=== PATIENT | female | born 1980 | race Hispanic/Latino ===

== ENCOUNTER 2019-04-19 14:13 | Emergency (ER) | payer SELFPAY ==
[2019-04-19 15:09] LABS: Urine Blood 3+ (NEG); Urine Glucose NEGATIVE (NEG); Urine Protein NEGATIVE (NEG); Urine Specific Gravity <1.005 (1.005-1.030)
[2019-04-19 15:41] LABS: BUN Blood Urea Nitrogen 10 mg/dL (7-18); Bicarbonate 27 mmol/L (21-32); Glucose Level 104 mg/dL (74-106); Potassium 3.3 mmol/L (3.5-5.1); Sodium Level 139 mmol/L (136-145)
--- NOTE | 2019-04-19 16:08 | RAD REPORT ---
EXAM DESCRIPTION: CT - Stone Protocol - 04/19/2019 3:58 pm CLINICAL HISTORY: Right-sided back pain, right-sided flank pain COMPARISON: None. TECHNIQUE: Axial 5 mm thick images were obtained without oral or IV contrast. The [id number] span s the entirety of the system including uppermost abdomen and lung bases. All CT scans are performed using dose optimization technique as appropriate and may include automated exposure control or mA/KV adjustment according to patient size. FINDINGS: No hydronephrosis is present and no obstructing ureteral calculi. No suspicious renal mass es. Isodense masses and pyelonephritis are not excluded on a stone protocol CT scan. No urinary bladd er suspicious finding. No significant adrenal finding. Mild diffuse fatty infiltration of the liver. No focal liver lesions identified. Spleen and pancreas show no suspicious findings. No gallbladder or biliary tree abnormality identified. No suspicious bowel findings. No evidence for appendicitis. Mild moderate stool volume seen in the ri ght-side of the colon. No hernia, mass or bulky lymphadenopathy noted. No free air, free fluid or inflammatory stranding. Lo bulated uterus is present likely containing fibroids. Assessment is limited in the absence contrast. No ovarian suspicious finding. No significant bony abnormality. IMPRESSION: Negative CT stone protocol study. Isodense masses and pyelonephritis are not excluded on stone protocol technique. Fatty infiltration of the liver.
--- NOTE | 2019-04-19 16:13 | ER ---
Nurse's Notes [facility] Name: Petty Greenfield Age: 38 yrs Sex: Female : 1980 Arrival Date: 04/19/2019 Time: 14:15 Bed 14 Private MD: Diagnosis: Flank Pain;Hypokalemia Presentation: 04/19 14:20 Presenting complaint: Patient states: for 3 days, i have this pain on my R mid back hj area down to the R lower back area, today i feel like my stomach is bloated; denies N/V; denies fever and chills;. Transition of care: patient was not received from another setting of care. Onset of symptoms was April 19, 2019. Risk Assessment: Do you want to hurt yourself or someone else? Patient reports no desire to harm self or others. Initial Sepsis Screen: Does the patient meet any 2 criteria? No. Patient's initial sepsis screen is negative. Does the patient have a suspected source of infection? No. Patient's initial sepsis screen is negative. Care prior to arrival: None. 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 - Ebola Screening: : No symptoms or risks identified at this time. Screenin:12 Abuse screen: Denies threats or abuse. Nutritional screening: No deficits noted. ae4 Tuberculosis screening: No symptoms or risk factors identified. Fall Risk None identified. Assessment: 14:45 General: Appears in no apparent distress. uncomfortable, Behavior is cooperative, ae4 anxious. Pain: Complains of pain in right lower quadrant and left lower quadrant. Neuro: Level of Consciousness is awake, alert, obeys commands, Oriented to person, place, time, situation, Appropriate for age. Cardiovascular: Patient's skin is warm and dry. Respiratory: Airway is patent Respiratory effort is even, unlabored, Respiratory pattern is regular, symmetrical. GI: Abdomen is round Bowel sounds present X 4 quads. Abd is soft and non tender X 4 quads. : No signs and/or symptoms were reported regarding the genitourinary system. Urine is clear. EENT: No signs and/or symptoms were reported regarding the EENT system. Derm: Skin is normal. Musculoskeletal: No signs and/or symptoms reported regarding the musculoskeletal system. 15:32 Reassessment: Patient and/or family updated on plan of care and expected duration. Pain ae4 level reassessed. 16:44 Reassessment: Patient appears in no apparent distress at this time. Patient and/or ae4 family updated on plan of care and expected duration. Pain level reassessed. Vital Signs: 14:22 BP 143 / 67; Pulse 66; Resp 18; Temp 98.2(TE); Pulse Ox 100% on R/A; Weight 74.84 kg; hj Height 5 ft. 3 in. (160.02 cm); Pain 6/10; 15:30 BP 121 / 71; Pulse 66; Resp 17; Pulse Ox 99% on R/A; ae4 14:22 Body Mass Index 29.23 (74.84 kg, 160.02 cm) ED Course: 14:15 Patient arrived in ED. mr 14:22 Triage completed. hj 14:22 Arm band placed on left wrist. hj 14:28 Jennifer Killian FNP-C [facility]. kb 14:28 Maury Calloway MD is Attending Physician. kb 14:45 Bed in low position. Call light in reach. Side rails up X 1. Adult w/ patient. Pulse ox ae4 on. NIBP on. 14:48 Ian Kelley, MAAME is Primary Nurse. ae4 14:52 Radiology exam delayed due to test not completed at this time. kw1 15:12 Inserted saline lock: 20 gauge in right antecubital area, using aseptic technique. ae4 Blood collected. 15:18 Radiology exam delayed due to test not completed at this time. vm2 16:00 Patient moved back from ultrasound. ae4 16:01 CT Stone Protocol In Process Unspecified. EDMS 16:48 No provider procedures requiring assistance completed. IV discontinued, intact, ae4 bleeding controlled, No redness/swelling at site. Pressure dressing applied. Administered Medications: 16:28 Drug: Potassium Chloride 20 mEq Route: PO; ae4 16:35 Follow up: Response: Medication administered at discharge. ae4 16:30 Drug: TORadol 30 mg Route: IVP; Site: right antecubital; ae4 16:35 Follow up: Response: No adverse reaction ae4 Outcome: 16:13 Discharge ordered by MD. cadena 16:48 Discharged to home ambulatory, with family. ae4 16:48 Condition: stable 16:48 Discharge instructions given to patient, Instructed on discharge instructions, follow up and referral plans. medication usage, Demonstrated understanding of instructions, Prescriptions given X 1. 16:48 Patient left the ED. ae4 Signatures: Dispatcher [employer] EDMS Jennifer Killian, SARA-C BORING MACHINE SET UP OPERATOR JIG-Zainab Robbins mr SanchezMick gibbs, RN RN Demetrio Harden [facility] Cecilia Delgado [facility] Ian Kelley, MAAME RN ae4 Corrections: (The following items were deleted from the chart) 14:24 14:22 Pulse 66bpm; Resp 18bpm; Pulse Ox 100% RA; Temp 98.2F Temporal; 74.84 kg; Height hj 5 ft. 3 in.; BMI: 29.2; Pain 6/10; hj 15:09 15:08 Patient moved to NC via wheelchair. bao gore
--- NOTE | 2019-04-19 16:14 | EDPHYS ---
Physician Documentation [facility] Name: Petty Greenfield Age: 38 yrs Sex: Female : 1980 Arrival Date: 04/19/2019 Time: 14:15 Bed 14 Private MD: ED Physician Maury Calloway HPI: 04/19 15:26 This 38 yrs old Female presents to ER via Ambulatory with complaints of kb Abdominal Pain, Back Pain. 15:26 The patient complains of pain in the left flank and right flank. The pain does not kb radiate. Onset: The symptoms/episode began/occurred 3 day(s) ago. Modifying factors: The symptoms are alleviated by nothing. the symptoms are aggravated by nothing. Associated signs and symptoms: Pertinent positives: urinary frequency, Pertinent negatives: diarrhea, dizziness, dysuria, fever, headache, hematuria, nausea, pain radiating to the lower extremities, vomiting. Severity of pain: At its worst the pain was moderate in the emergency department the pain is unchanged. The patient has not experienced similar symptoms in the past. The patient has not recently seen a physician. Pt reports bilateral flank pain since Wednesday. States she has had urinary frequency as well. Denies dysuria. 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 - Ebola Screening: : No symptoms or risks identified at this time. ROS: 15:24 Constitutional: Negative for fever, chills, and weight loss, Cardiovascular: Negative kb for chest pain, palpitations, and edema, Respiratory: Negative for shortness of breath, cough, wheezing, and pleuritic chest pain, Abdomen/GI: Negative for abdominal pain, nausea, vomiting, diarrhea, and constipation, MS/Extremity: Negative for injury and deformity, Skin: Negative for injury, rash, and discoloration, Neuro: Negative for headache, weakness, numbness, tingling, and seizure. 15:24 Back: Positive for flank pain, bilaterally. 15:24 : Positive for urinary frequency. Exam: 15:24 Constitutional: This is a well developed, well nourished patient who is awake, alert, kb and in no acute distress. Head/Face: Normocephalic, atraumatic. ENT: Nares patent. No nasal discharge, no septal abnormalities noted. Tympanic membranes are normal and external auditory canals are clear. Oropharynx with no redness, swelling, or masses, exudates, or evidence of obstruction, uvula midline. Mucous membranes moist. Neck: Trachea midline, no thyromegaly or masses palpated, and no cervical lymphadenopathy. Supple, full range of motion without nuchal rigidity, or vertebral point tenderness. No Meningismus. Chest/axilla: Normal chest wall appearance and motion. Nontender with no deformity. No lesions are appreciated. Cardiovascular: Regular rate and rhythm with a normal S1 and S2. No gallops, murmurs, or rubs. Normal PMI, no JVD. No pulse deficits. Respiratory: Lungs have equal breath sounds bilaterally, clear to auscultation and percussion. No rales, rhonchi or wheezes noted. No increased work of breathing, no retractions or nasal flaring. Abdomen/GI: Soft, non-tender, with normal bowel sounds. No distension or tympany. No guarding or rebound. No evidence of tenderness throughout. Skin: Warm, dry with normal turgor. Normal color with no rashes, no lesions, and no evidence of cellulitis. MS/ Extremity: Pulses equal, no cyanosis. Neurovascular intact. Full, normal range of motion. Neuro: Awake and alert, GCS 15, oriented to person, place, time, and situation. Cranial nerves II-XII grossly intact. Motor strength 5/5 in all extremities. Sensory grossly intact. Cerebellar exam normal. Normal gait. 15:24 Back: CVA tenderness, that is mild, is noted bilaterally. Vital Signs: 14:22 BP 143 / 67; Pulse 66; Resp 18; Temp 98.2(TE); Pulse Ox 100% on R/A; Weight 74.84 kg; hj Height 5 ft. 3 in. (160.02 cm); Pain 6/10; 15:30 BP 121 / 71; Pulse 66; Resp 17; Pulse Ox 99% on R/A; ae4 14:22 Body Mass Index 29.23 (74.84 kg, 160.02 cm) MDM: 14:38 Patient medically screened. kb 15:23 Data reviewed: vital signs, nurses notes. Data interpreted: Pulse oximetry: on room air kb is 100 %. Interpretation: normal. 16:12 Counseling: I had a detailed discussion with the patient and/or guardian regarding: the kb historical points, exam findings, and any diagnostic results supporting the discharge/admit diagnosis, lab results, radiology results, the need for outpatient follow up, a family practitioner, to return to the emergency department if symptoms worsen or persist or if there are any questions or concerns that arise at home. 04/19 14:47 Order name: Test, Serum; Complete Time: 16:01 kb 04/19 14:48 Order name: Basic Metabolic Panel; Complete Time: 16:01 kb 04/19 14:48 Order name: CT Stone Protocol; Complete Time: 16:11 kb 04/19 14:57 Order name: Urine Dipstick--Ancillary (enter results); Complete Time: 15:14 bd 04/19 14:24 Order name: Urine Dipstick-Ancillary (obtain specimen); Complete Time: 15:10 Administered Medications: 16:28 Drug: Potassium Chloride 20 mEq Route: PO; ae4 16:35 Follow up: Response: Medication administered at discharge. ae4 16:30 Drug: TORadol 30 mg Route: IVP; Site: right antecubital; ae4 16:35 Follow up: Response: No adverse reaction ae4 Disposition: 04/19/19 16:13 Discharged to Home. Impression: Flank Pain, Hypokalemia. - Condition is Stable. - Discharge Instructions: Flank Pain, [id number]. - Prescriptions for Diclofenac Sodium 75 mg Oral Tablet, Delayed Release (E.C.) - take 1 tablet by ORAL route 2 times per day As needed; 30 tablet. - Medication Reconciliation Form, Thank You Letter, Antibiotic Education, Prescription Opioid Use form. - Follow up: Emergency Department; When: As needed; Reason: Worsening of condition. Follow up: Private Physician; When: 2 - 3 days; Reason: Recheck today's complaints, Continuance of care, Re-evaluation by your physician. Signatures: Dispatcher [employer] EDJennifer France FNP-C FNP-Ckb Joaquin, Henry, RN RN Ian Kelley RN RN ae4 Corrections: (The following items were deleted from the chart) 14:48 14:25 Urine Test ordered. kb 16:48 16:13 04/19/2019 16:13 Discharged to Home. Impression: Flank Pain; Hypokalemia. ae4 Condition is Stable. Forms are Medication Reconciliation Form, Thank You Letter, Antibiotic Education, Prescription Opioid Use. Follow up: Emergency Department; When: As needed; Reason: Worsening of condition. Follow up: Private Physician; When: 2 - 3 days; Reason: Recheck today's complaints, Continuance of care, Re-evaluation by your physician. kb
[2019-04-19] MEDS ORDERED: POTASSIUM CL SA 10 MEQ TAB PO ONE (16:43)
[2019-04-19] MEDS ORDERED: KETOROLAC 30 MG/ML INJ ONE (16:43)
== END 2019-04-19 16:48 | disposition home or self-care (01) ==
LOC: ER 14:13
DX: E87.6 Hypokalemia (principal)
CPT/HCPCS: 36415; 74176; 76377; 80048; 81003; 84703; 96374; 99284

== ENCOUNTER 2020-02-25 23:23 | Emergency (ER) | payer SELFPAY ==
[2020-02-26] MEDS ORDERED: WATER FOR INJ,STERILE 10 ML ONE (00:06)
[2020-02-26] MEDS ORDERED: LIDOCAINE 1% MPF 2 ML AMPULE ONE (00:06)
[2020-02-26] MEDS ORDERED: CEFTRIAXONE 1000 MG/VIAL ONE (00:06)
--- NOTE | 2020-02-26 00:37 | EDPHYS ---
Physician Documentation [facility] Name: Petty Greenfield Age: 39 yrs Sex: Female : 1980 Arrival Date: 02/25/2020 Time: 23:26 Bed 27 Private MD: Marina Cloud H ED Physician Ruben Stokes HPI: 02/24 23:32 This 39 yrs old Female presents to ER via Ambulatory with complaints of Pain jmm With Urination. 23:32 The patient presents with urinary symptoms. Onset: The symptoms/episode began/occurred jmm gradually, 1 day(s) ago. Modifying factors: The symptoms are alleviated by nothing, the symptoms are aggravated by nothing. Associated signs and symptoms: Pertinent negatives: fever, vomiting. This is a 39 year old female with no chronic medical conditions that presents to the ED with complaints of painful urination. Symptoms initially began 2 weeks ago and resolved with oral abx. Symptoms return yesterday and patient was prescribed oral antibiotics. Patient states symptoms have worsened this evening. Patient denies vomiting, abdominal pain, flank pain or fever. . 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 - Social history:: Smoking status: Patient denies any tobacco usage or history of. ROS: 23:32 Constitutional: Negative for fever, chills, and weight loss, Cardiovascular: Negative jmm for chest pain, palpitations, and edema, Respiratory: Negative for shortness of breath, cough, wheezing, and pleuritic chest pain, Abdomen/GI: Negative for abdominal pain, nausea, vomiting, diarrhea, and constipation, Back: Negative for injury and pain. 23:32 : Positive for urinary symptoms. 23:32 All other systems are negative. Exam: 23:32 Head/Face: atraumatic. Eyes: EOMI, no conjunctival erythema appreciated ENT: Moist jmm Mucus Membranes Neck: Trachea midline, Supple Chest/axilla: Normal chest wall appearance and motion. Cardiovascular: Regular rate and rhythm. No edema appreciated Respiratory: Normal respirations, no respiratory distress appreciated Abdomen/GI: Non distended, soft Back: Normal ROM Skin: General appearance color normal MS/ Extremity: Moves all extremities, no obvious deformities appreciated, no edema noted to the lower extremities Neuro: Awake and alert, normal gait Psych: Behavior is normal, Mood is normal, Patient is cooperative and pleasant 23:32 Constitutional: The patient appears alert, awake, uncomfortable. 23:32 Abdomen/GI: Inspection: abdomen appears normal, Bowel sounds: normal, Palpation: [facility] abdomen is soft and non-tender, in all quadrants. 23:32 Back: CVA tenderness, is absent, is noted bilaterally. Vital Signs: 23:37 BP 161 / 83; Pulse 66; Resp 19; Temp 98.6; Pulse Ox 100% ; Weight 73.48 kg; rv 02/25 00:22 BP 117 / 69; Pulse 65; Resp 15; Pulse Ox 100% on R/A; rv MDM: 02/24 23:32 Patient medically screened. [facility] 02/25 00:22 Data reviewed: vital signs, nurses notes. Counseling: I had a detailed discussion with [facility] the patient and/or guardian regarding: the historical points, exam findings, and any diagnostic results supporting the discharge/admit diagnosis, the need for outpatient follow up, to return to the emergency department if symptoms worsen or persist or if there are any questions or concerns that arise at home. ED course: Patient is alert and non toxic in appearance in the ED. Abd is benign. Will treat with im and oral abx. Urine is cultured. I discussed return precautions with the patient along with need for close outpatient follow up. Patient understood and agrees with the plan of care. . 02/24 23:33 Order name: Urine Culture [facility] 02/24 23:33 Order name: Urine Dipstick-Ancillary (obtain specimen); Complete Time: 00:16 [facility] 02/24 23:33 Order name: Urine Test (obtain specimen); Complete Time: 00:16 [facility] Administered Medications: 00:16 Drug: Rocephin (cefTRIAXone) 1 grams Route: IM; Site: right deltoid; rv 00:47 Follow up: Response: No adverse reaction rv Disposition: 02/26/20 00:36 Discharged to Home. Impression: Urinary tract infection, site not specified, Dysuria. - Condition is Stable. - Discharge Instructions: Dysuria, Urinary Tract Infection, Adult. - Prescriptions for Cephalexin 250 mg Oral Capsule - take 1 capsule by ORAL route every 12 hours for 10 days; 20 capsule. Ultracet 37.5- 325 mg Oral Tablet - take 1 tablet by ORAL route every 6 hours - for up to 5 days; do not exceed 8 tablets per day.; 12 tablet. - Medication Reconciliation Form, Thank You Letter, Antibiotic Education, Prescription Opioid Use form. - Follow up: Marina Cloud DO; When: 2 - 3 days; Reason: Recheck today's complaints, Continuance of care, Re-evaluation by your physician. Addendum: 02/27/2020 10:06 Co-signature as Attending Physician, Ruben Stokes MD I agree with the assessment and t w4 plan of care. Signatures: Dispatcher [employer] EDMS Mayur Miranda, Ruben Peñaloza MD MD tw4 Lacho Hewitt, RN RN rv Corrections: (The following items were deleted from the chart) 02/25 00:48 00:36 02/26/2020 00:36 Discharged to Home. Impression: Urinary tract infection, site rv not specified; Dysuria. Condition is Stable. Forms are Medication Reconciliation Form, Thank You Letter, Antibiotic Education, Prescription Opioid Use. Follow up: Marina Cloud; When: 2 - 3 days; Reason: Recheck today's complaints, Continuance of care, Re-evaluation by your physician. ronaldo
--- NOTE | 2020-02-26 00:37 | ER ---
Nurse's Notes [facility] Name: Petty Greenfield Age: 39 yrs Sex: Female : 1980 Arrival Date: 02/25/2020 Time: 23:26 Bed 27 Private MD: Marina Cloud H Diagnosis: Urinary tract infection, site not specified;Dysuria Presentation: 02/24 23:37 Chief complaint: Patient states: DIAGNOSED WITH URINE INFECTION YESTERDAY AND STARTED rv CIPRO LAST NIGHT. PAIN WITH URINATION IS WORSE TODAY. DENIES FEVER, NAUSEA AND VOMITING. Coronavirus screen: Proceed with normal triage. Ebola Screen: No symptoms or risks identified at this time. Initial Sepsis Screen: Does the patient meet any 2 criteria? No. Patient's initial sepsis screen is negative. Does the patient have a suspected source of infection? No. Patient's initial sepsis screen is negative. Risk Assessment: Do you want to hurt yourself or someone else? Patient reports no desire to harm self or others. Onset of symptoms was February 25, 2020 at 08:00. 23:37 Method Of Arrival: Ambulatory rv 23:37 Acuity: MAISHA 4 rv Triage Assessment: 23:39 General: Appears in no apparent distress. Behavior is calm, cooperative. Pain: rv Complains of pain in suprapubic area. Pain: Quality of pain is described as crampy. Neuro: Level of Consciousness is awake, alert, obeys commands, Oriented to person, place, time, situation. Cardiovascular: Patient's skin is warm and dry. Respiratory: Airway is patent. GI: No signs and/or symptoms were reported involving the gastrointestinal system. Patient currently denies nausea, vomiting. : Reports pain with urination. 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 - Social history:: Smoking status: Patient denies any tobacco usage or history of. Screenin:41 Abuse screen: Denies threats or abuse. Denies injuries from another. Nutritional rv screening: No deficits noted. Tuberculosis screening: No symptoms or risk factors identified. Fall Risk None identified. Assessment: 02/25 00:21 Reassessment: GIVEN IM ANTIBIOTIC. EXPLAINED THE WAITING TIME AND TEST RESULT. rv Vital Signs: 02/24 23:37 BP 161 / 83; Pulse 66; Resp 19; Temp 98.6; Pulse Ox 100% ; Weight 73.48 kg; rv 02/25 00:22 BP 117 / 69; Pulse 65; Resp 15; Pulse Ox 100% on R/A; rv ED Course: 02/24 23:26 Patient arrived in ED. mr 23:26 Marina Cloud DO is Private Physician. mr 23:27 Mayur Miranda [facility] 23:27 Ruben Stokes MD is Attending Physician. [facility] 23:27 Lacho Hewitt, RN is Primary Nurse. rv 23:38 Triage completed. rv 23:41 Arm band placed on Patient placed in the treatment room, on a stretcher, Patient rv notified of wait time. 23:41 Patient has correct armband on for positive identification. Pulse ox on. NIBP on. rv 02/25 00:36 Marina Cloud DO is Referral Physician. [facility] 00:47 No provider procedures requiring assistance completed. Patient did not have IV access rv during this emergency room visit. Administered Medications: 00:16 Drug: Rocephin (cefTRIAXone) 1 grams Route: IM; Site: right deltoid; rv 00:47 Follow up: Response: No adverse reaction rv Outcome: 00:36 Discharge ordered by MD. [facility] 00:47 Discharged to home ambulatory. rv 00:47 Condition: good 00:47 Discharge instructions given to patient, Instructed on discharge instructions, follow up and referral plans. medication usage, Demonstrated understanding of instructions, follow-up care, medications, Prescriptions given X 3. 00:48 Patient left the ED. rv Signatures: Mayur Miranda PA PA paramjit Ashish Zainab mr Lacho Hewitt, RN RN rv
[2020-02-26 00:55] VITALS: TEMP 98.6; O2SAT 100
[2020-02-26 00:56] VITALS: BP 117/69
== END 2020-02-26 00:48 | disposition home or self-care (01) ==
LOC: ER 23:23
DX: N39.0 Urinary tract infection, site not specified (principal)
CPT/HCPCS: 87086; 87088; J2001

== ENCOUNTER 2023-07-02 15:11 | Emergency (ER) | payer SELFPAY ==
--- OUTSIDE RECORDS SUMMARY | 2023-07-02 15:13 | XMS REPORT | Continuity of Care Document ---
:1980 Author Organization [facility] t Address [address] [place] [address] Care Team Providers Name Role Phone KATHARINE SANCHEZ Primary Care Physician Unavailable KELECHI MOE Attending Clinician Unavailable Problems This patient has no known problems. Allergies, Adverse Reactions, Alerts Allergy Allergy Status Severity Reaction(s) Onset Inactive Treating Comm ents Source Name Type Date Date Clinician NO KNOWN Drug Active Univers ALLERGIE Class 1-15 ity of S 00:00: [address] Medications This patient has no known medications. Procedures This patient has no known procedures. Results This patient has no known results.
[2023-07-02 15:44] LABS: Specific Gravity 1.021 (1.005-1.030)
[2023-07-02 15:50] LABS: SARS-CoV-2 Antigen Rapid Res Negative (Negative)
[2023-07-02 16:00] LABS: Specific Gravity 1.021 (1.005-1.030); Urine Bacteria <20 /HPF (<20); Urine Bilirubin NEGATIVE (Negative); Urine Blood 3+ (Negative); Urine Clarity Extremely Turbid (Clear); Urine Color Light-Yellow (Yellow); Urine Glucose NEGATIVE (Negative); Urine Mucus 1+ /HPF (None Seen); Urine Protein TRACE (Negative); Urine Urobilinogen Normal (Normal); Urine pH 5.5 (5.0-7.0)
[2023-07-02 16:57] LABS: Absolute Lymphocytes (CBC) 1.9 K/uL (0.7-4.9); Hematocrit 35.6 % (36.0-45.0); Lymphocytes % 24.7 % (15.3-44.8); MCV 78.5 fL (80-100); MPV 7.7 fL (7.6-11.3); Platelets 427 thou/uL (152-406); RBC Red Blood Cell Count 4.54 M/uL (3.86-4.86)
[2023-07-02 17:20] LABS: Albumin 3.8 g/dL (3.4-5.0); Bilirubin Total 0.4 mg/dL (0.2-1.0); Potassium 3.5 mEq/L (3.5-5.1); Protein, Total 7.6 g/dL (6.4-8.2)
--- NOTE | 2023-07-02 18:20 | RAD REPORT ---
EXAM DESCRIPTION: CT - Abdomen Pelvis W Contrast - 07/02/2023 6:08 pm CLINICAL HISTORY: Abdominal pain COMPARISON: 2018 TECHNIQUE: Computed axial tomography of the abdomen pelvis was obtained. 100 cc Isovue-300 was admin istered intravenously. Oral contrast was not requested which limits evaluation of bowel and appendix All CT scans are performed using dose optimization technique as appropriate and may include automated exposure control or mA/KV adjustment according to patient size. FINDINGS: Mild fatty liver Spleen, pancreas, adrenals and kidneys unremarkable Normal appendix. No evidence of diverticulitis. 2.1 centimeter left ovarian cyst without significant. No follow-up recommended Retroverted uterus IMPRESSION: Mild fatty liver
--- NOTE | 2023-07-02 18:52 | ER ---
Nurse's Notes [facility] Name: Petty Greenfield Age: 42 yrs Sex: Female : 1980 Arrival Date: 07/02/2023 Time: 15:11 Bed 8 Private MD: Diagnosis: Lower abdominal pain, unspecified;Other and unspecified ovarian cysts;Hematuria, unspecified Presentation: 07/02 15:18 Chief complaint: Patient states: feeling tired all week and today started with lower cm10 abdominal pain and nausea. No fever, no diarrhea. Coronavirus screen: Vaccine status: Patient reports receiving the 2nd dose of the covid vaccine. Client denies travel out of the [place] in the last 14 days. Ebola Screen: Patient denies travel to an Ebola-affected area in the 21 days before illness onset. No symptoms or risks identified at this time. Initial Sepsis Screen: Does the patient meet any 2 criteria? No. Patient's initial sepsis screen is negative. Does the patient have a suspected source of infection? No. Patient's initial sepsis screen is negative. Risk Assessment: Do you want to hurt yourself or someone else? Patient reports no desire to harm self or others. Onset of symptoms was July 02, 2023. 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 - Social history:: Smoking status: Patient denies any tobacco usage or history of. - Family history:: not pertinent. - Hospitalizations: : No recent hospitalization is reported. Screenin:24 [facility] ED Fall Risk Assessment (Adult) Score/Fall Risk Level 0 - 2 = Low Risk. Abuse iw screen: Denies threats or abuse. Denies injuries from another. Nutritional screening: No deficits noted. Tuberculosis screening: No symptoms or risk factors identified. Assessment: 16:00 General: Appears comfortable, Behavior is calm, cooperative, Reports fatigue for >3 aa5 days. Pain: Complains of pain in right lower quadrant and left lower quadrant Pain currently is 5 out of 10 on a pain scale. Quality of pain is described as crampy, Pain began this morning Is intermittent. Neuro: Level of Consciousness is awake, alert, obeys commands, Oriented to person, place, time, situation. Cardiovascular: Heart tones S1 S2 present Rhythm is regular. Respiratory: Airway is patent Respiratory effort is even, unlabored, Respiratory pattern is regular, symmetrical. GI: Abdomen is round non-distended, Bowel sounds present X 4 quads. Abd is soft and non tender X 4 quads. Reports lower abdominal pain, nausea, Patient currently denies diarrhea, vomiting. : No signs and/or symptoms were reported regarding the genitourinary system. EENT: No signs and/or symptoms were reported regarding the EENT system. Derm: Skin is pink, warm \T\ dry. Musculoskeletal: Range of motion: intact in all extremities. 17:24 Reassessment: Patient appears in no apparent distress at this time. Patient and/or iw family updated on plan of care and expected duration. Pain level reassessed. Patient is alert, oriented x 3, equal unlabored respirations, skin warm/dry/pink. Vital Signs: 15:18 BP 122 / 69; Pulse 78; Resp 16; Temp 98.9; Pulse Ox 100% ; Weight 72.57 kg; Pain 5/10; cm10 17:38 BP 114 / 66; Pulse 64; Resp 16; Pulse Ox 100% on R/A; iw 15:18 Pain Scale: Adult cm10 ED Course: 15:14 Patient arrived in ED. mr 15:17 Domenic Gtz MD is Attending Physician. rn 15:19 Triage completed. cm10 15:20 Arm band placed on Patient placed in waiting room. cm10 15:33 Flu Sent. cm10 15:33 SARS RAPID Sent. cm10 15:33 Test, Urine Sent. cm10 15:33 Urinalysis w/ reflexes Sent. cm10 16:00 Patient has correct armband on for positive identification. Placed in gown. Bed in low aa5 position. Call light in reach. Side rails up X2. Pulse ox on. NIBP on. 16:56 Consuelo Ham, MAAME is Primary Nurse. aa5 18:09 CT Abd/Pelvis - IV Contrast Only In Process Unspecified. EDMS 19:14 No provider procedures requiring assistance completed. IV discontinued, intact, hb bleeding controlled, No redness/swelling at site. Administered Medications: No medications were administered Medication: 17:45 VIS not applicable for this client. Outcome: 18:51 Discharge ordered by . rn 19:14 Discharged to home ambulatory. hb 19:14 Condition: stable 19:14 Discharge instructions given to patient, Instructed on discharge instructions, follow up and referral plans. medication usage, Demonstrated understanding of instructions, follow-up care, medications, Prescriptions given X 2. 19:14 Patient left the ED. hb Signatures: Dispatcher [employer] [facility] Zainab Hinojosa Julissa Wiseman, RN Domenic Landaverde MD MD rn Calderon, Audri RN RN aa5 Mckenna Quinones RN RN hb Martinez, Clarissa RN RN cm10 Corrections: (The following items were deleted from the chart) 15:20 15:19 PSHx: None; cm10 cm10 20:00 16:00 General: Appears comfortable, Behavior is calm, cooperative, aa5 aa5
--- NOTE | 2023-07-02 18:52 | EDPHYS ---
Physician Documentation [facility] Name: Petty Greenfield Age: 42 yrs Sex: Female : 1980 Arrival Date: 07/02/2023 Time: 15:11 Bed 8 Private MD: ED Physician Domenic Gtz HPI: 07/02 15:35 This 42 yrs old Female presents to ER via Ambulatory with complaints of rn Abdominal Pain. 15:35 The patient presents with abdominal pain in the lower abdomen. Onset: The rn symptoms/episode began/occurred 1 week(s) ago. The symptoms do not radiate. Associated signs and symptoms: Pertinent negatives: anorexia, blood in stools, chest pain, constipation, diarrhea, dysuria, fever, hematuria. The symptoms are described as achy, crampy. Modifying factors: The symptoms are alleviated by nothing, the symptoms are aggravated by nothing. Severity of pain: At its worst the pain was mild in the emergency department the pain is unchanged. The patient has not experienced similar symptoms in the past. Pt reports lower abd pain, no fever/vomiting/diarrhea/chest pain/sob/blood in stool. No dysuria. NO hx of kidney stones. Still has appendix. Also having lower back pain. . 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 - Social history:: Smoking status: Patient denies any tobacco usage or history of. - Family history:: not pertinent. - Hospitalizations: : No recent hospitalization is reported. ROS: 15:35 Constitutional: Negative for fever, chills, and weight loss, Eyes: Negative for injury, rn pain, redness, and discharge, Cardiovascular: Negative for chest pain, palpitations, and edema, Respiratory: Negative for shortness of breath, cough, wheezing, and pleuritic chest pain, Abdomen/GI: + abd pain Back: + low back pain : Negative for injury, bleeding, discharge, and swelling, MS/Extremity: Negative for injury and deformity, Skin: Negative for injury, rash, and discoloration, Neuro: Negative for headache, weakness, numbness, tingling, and seizure. Exam: 15:35 Constitutional: This is a well developed, well nourished patient who is awake, alert, rn and in no acute distress. Head/Face: Normocephalic, atraumatic. Cardiovascular: Regular rate and rhythm. No pulse deficits. Respiratory: No increased work of breathing, no retractions or nasal flaring. Abdomen/GI: Soft, + RLQ/suprapubic/LLQ tenderness, no peritoneal signs. Skin: Warm, dry MS/ Extremity: Pulses equal, no cyanosis Neuro: Awake and alert, GCS 15 Vital Signs: 15:18 BP 122 / 69; Pulse 78; Resp 16; Temp 98.9; Pulse Ox 100% ; Weight 72.57 kg; Pain 5/10; cm10 17:38 BP 114 / 66; Pulse 64; Resp 16; Pulse Ox 100% on R/A; iw 15:18 Pain Scale: Adult cm10 MDM: 15:17 Patient medically screened. rn 18:50 Differential diagnosis: appendicitis, diverticulitis, Endometriosis, gastritis, rn non-specific abd pain, Ureterolithiasis, urinary tract infection. Data reviewed: vital signs, nurses notes, lab test result(s), radiologic studies, CT scan, and as a result, I will discharge patient. Counseling: I had a detailed discussion with the patient and/or guardian regarding the historical points, exam findings, and any diagnostic results supporting the discharge/admit diagnosis, lab results, radiology results, the need for outpatient follow up, to return to the emergency department if symptoms worsen or persist or if there are any questions or concerns that arise at home. Response to treatment: the patient's symptoms have mildly improved after treatment, and as a result, I will discharge patient. Special discussion: Based on the patient's Hx, exam, and Dx evaluation, there is no indication for emergent surgery or inpatient Tx. It is understood by the patient/guardian that if the Sx's persist or worsen they need to return immediately for re-evaluation. I discussed with the patient/guardian in detail that at this point there is no indication for admission to the hospital. It is understood, however, that if the symptoms persist or worsen the patient needs to return immediately for re-evaluation. 07/02 15:26 Order name: CBC with Diff; Complete Time: 17:08 rn 07/02 15:26 Order name: CMP; Complete Time: 17:52 rn 07/02 15:26 Order name: Lipase; Complete Time: 17:52 rn 07/02 15:26 Order name: Test, Urine; Complete Time: 16:03 rn 07/02 15:26 Order name: Urinalysis w/ reflexes; Complete Time: 16:03 rn 07/02 15:26 Order name: SARS RAPID; Complete Time: 16:03 rn 07/02 15:26 Order name: Flu; Complete Time: 16:03 rn 07/02 15:26 Order name: CT Abd/Pelvis - IV Contrast Only; Complete Time: 18:36 rn 07/02 15:26 Order name: IV Saline Lock; Complete Time: 16:56 rn 07/02 15: Order name: Labs collected and sent; Complete Time: 16:56 rn Administered Medications: No medications were administered Disposition Summary: 07/02/23 18:51 Discharge Ordered Location: Home rn Problem: new rn Symptoms: have improved rn Condition: Stable rn Diagnosis - Lower abdominal pain, unspecified rn - Other and unspecified ovarian cysts rn - Hematuria, unspecified rn Followup: rn - With: Private Physician - When: As needed - Reason: Recheck today's complaints, Re-evaluation by your physician Discharge Instructions: - Discharge Summary Sheet rn - Abdominal Pain, Adult rn - Hematuria, Adult rn - Ovarian Cyst rn Forms: - Medication Reconciliation Form rn - Thank You Letter rn - Antibiotic rn hedis - Prescription Opioid Use rn - Patient Portal Instructions rn - Leadership Thank You Letter rn Prescriptions: - Cipro 500 mg Oral Tablet - take 1 tablet by ORAL route every 12 hours for 7 days; 14 tablet; Refills: 0, rn Product Selection Permitted - Diclofenac Sodium 75 mg Oral tablet,delayed release (DR/EC) - take 1 tablet by ORAL route 2 times per day; 12 tablet; Refills: 0, Product rn Selection Permitted Signatures: Dispatcher [employer] Domenic Platt MD MD rn Martinez, Clarissa, RN RN cm10 Corrections: (The following items were deleted from the chart) 15:20 15:19 PSHx: None; cm10 cm10
[2023-07-02 19:21] VITALS: TEMP 98.9; O2SAT 100
[2023-07-02 19:23] VITALS: BP 114/66
== END 2023-07-02 19:14 | disposition home or self-care (01) ==
LOC: ER 15:11
DX: N83.299 Other ovarian cyst, unspecified side (principal); R31.9 Hematuria, unspecified; Z20.822 Contact with and (suspected) exposure to COVID-19
CPT/HCPCS: 36415; 74177; 80053; 81001; 81025; 83690; 85025; 87804; 87811; 99283; Q9967

== ENCOUNTER 2023-07-05 12:10 | Emergency (ER) | payer SELFPAY ==
--- OUTSIDE RECORDS SUMMARY | 2023-07-05 12:42 | XMS REPORT | Continuity of Care Document ---
:1980 Author Organization [facility] t Address [address] [place] [address] Care Team Providers Name Role Phone KATHARINE SANCHEZ Primary Care Physician Unavailable KELECHI MOE Attending Clinician Unavailable Problems This patient has no known problems. Allergies, Adverse Reactions, Alerts Allergy Allergy Status Severity Reaction(s) Onset Inactive Treating Comm ents Source Name Type Date Date Clinician NO KNOWN Drug Active Univers ALLERGIE Class 1-15 ity of S 00:00: [address] Medications This patient has no known medications. Procedures This patient has no known procedures. Results This patient has no known results.
--- NOTE | 2023-07-05 14:16 | RAD REPORT ---
EXAM DESCRIPTION: RAD - Chest Single View - 07/05/2023 2:11 pm CLINICAL HISTORY: CHEST PAIN Chest pain. COMPARISON: <Comparisons> FINDINGS: Portable technique limits examination quality. The lungs are grossly clear. The heart is normal in size. No displaced fractures. IMPRESSION: No acute intrathoracic process suspected.
[2023-07-05 14:49] LABS: Absolute Lymphocytes (CBC) 2.1 K/uL (0.7-4.9); Hematocrit 36.2 % (36.0-45.0); Lymphocytes % 22.3 % (15.3-44.8); MCV 78.9 fL (80-100); MPV 7.5 fL (7.6-11.3); Platelets 419 thou/uL (152-406); Protime INR 1.09; RBC Red Blood Cell Count 4.58 M/uL (3.86-4.86)
[2023-07-05 15:07] LABS: Albumin 3.8 g/dL (3.4-5.0); Bilirubin Direct 0.1 mg/dL (0-0.2); Bilirubin Indirect, Calculated 0.2 mg/dL (0.2-0.8); Bilirubin Total 0.3 mg/dL (0.2-1.0); Magnesium 2.2 mg/dL (1.6-2.4); Potassium 3.8 mEq/L (3.5-5.1); Protein, Total 7.7 g/dL (6.4-8.2); Troponin High Sensitivity 3.9 pg/mL (<58.9)
--- NOTE | 2023-07-05 16:39 | RAD REPORT ---
EXAM DESCRIPTION: CT - Head Brain Wo Cont - 07/05/2023 4:33 pm CLINICAL HISTORY: DIZZINESS Headache, drowsiness COMPARISON: Head Brain Wo Cont dated 07/07/2017 TECHNIQUE: All CT scans are performed using dose optimization technique as appropriate and may inclu de automated exposure control or mA/KV adjustment according to patient size. FINDINGS: No intracranial hemorrhage, hydrocephalus or extra-axial fluid collection.No areas of brai n edema or evidence of midline shift. The paranasal sinuses and mastoids are clear. The calvarium is intact. IMPRESSION: No acute intracranial abnormality.
--- NOTE | 2023-07-05 17:14 | EDPHYS ---
Physician Documentation [facility] Name: Petty Greenfield Age: 42 yrs Sex: Female : 1980 Arrival Date: 07/05/2023 Time: 12:10 Bed Treatment Private MD: ED Physician Domenic Gtz HPI: 07/05 13:20 This 42 yrs old Female presents to ER via Ambulatory with complaints of Near cp Syncope. 13:20 The patient has experienced near-syncope, almost passed out, felt dizzy. Onset: The cp symptoms/episode began/occurred today. Duration: This was a single episode. Context: occurred while the patient was walking. Associated injury: The patient did not suffer any apparent associated injury. Associated signs and symptoms: Pertinent positives: dizziness, headache, lightheadedness, Pertinent negatives: abdominal pain, chest pain, diaphoresis, palpitations, shortness of breath. Current symptoms: headache, that is mild. 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 - Social history:: Smoking status: Patient denies any tobacco usage or history of. ROS: 13:25 Constitutional: Positive for fatigue, malaise, Negative for body aches, chills, fever, cp poor PO intake. 13:25 Eyes: Negative for injury, pain, redness, and discharge. cp 13:25 ENT: Negative for drainage from ear(s), ear pain, sore throat, difficulty swallowing, difficulty handling secretions. 13:25 Cardiovascular: Negative for chest pain, edema, palpitations. 13:25 Respiratory: Negative for cough, shortness of breath, wheezing. 13:25 Abdomen/GI: Positive for nausea, Negative for abdominal pain, vomiting, diarrhea, constipation. 13:25 Neuro: Positive for dizziness, headache, near syncope, Negative for altered mental status, numbness, syncope. 13:25 All other systems are negative. Exam: 13:30 Constitutional: The patient appears in no acute distress, alert, awake, cp non-diaphoretic, non-toxic, well developed, well nourished. 13:30 Head/Face: Normocephalic, atraumatic. cp 13:30 Eyes: Periorbital structures: appear normal, Pupils: equal, round, and reactive to light and accomodation, Extraocular movements: intact throughout, Conjunctiva: normal, no exudate, no injection, Sclera: no appreciated abnormality, Lids and lashes: appear normal, bilaterally. 13:30 ENT: External ear(s): are unremarkable, Ear canal(s): are normal, TM's: dullness, bilaterally, Nose: is normal, Mouth: Lips: moist, Oral mucosa: pink and intact, moist, Posterior pharynx: is normal, airway is patent, no erythema, no exudate. 13:30 Neck: ROM/movement: is normal, is supple, without pain, no range of motions limitations. 13:30 Chest/axilla: Inspection: normal. 13:30 Cardiovascular: Rate: normal, Rhythm: regular, Edema: is not appreciated, JVD: is not appreciated. 13:30 Respiratory: the patient does not display signs of respiratory distress, Respirations: normal, no use of accessory muscles, no retractions, labored breathing, is not present, Breath sounds: are clear throughout, no decreased breath sounds, no stridor, no wheezing. 13:30 Abdomen/GI: Inspection: abdomen appears normal, Palpation: abdomen is soft and non-tender, in all quadrants. 13:30 Back: pain, is absent, ROM is normal. 13:30 Neuro: Orientation: to person, place \T\ time. Mentation: is normal, Cerebellar function: is grossly normal, Motor: moves all fours, strength is normal, Sensation: is normal, Gait: is steady, at a normal pace, without difficulty. 14:55 ECG was reviewed by the Attending Physician. cp Vital Signs: 12:57 BP 142 / 65; Pulse 72; Resp 18; Temp 98.2; Pulse Ox 100% ; Weight 72.57 kg; Height 5 mb9 ft. 3 in. ; 16:52 BP 142 / 65; Pulse 70; Resp 17; Pulse Ox 100% on R/A; Pain 0/10; me1 17:05 BP 130 / 66 Supine; Pulse 70; Pulse Ox 100% ; cm10 17:05 BP 137 / 77 Sitting; Pulse 66; Pulse Ox 100% ; cm10 17:05 BP 130 / 82; Pulse 73; Pulse Ox 100% on R/A; cm10 12:57 Body Mass Index 28.34 (72.57 kg, 160.02 cm) mb9 16:52 Pain Scale: Adult me1 MDM: 13:01 Patient medically screened. 17:13 Data reviewed: vital signs, nurses notes, lab test result(s), EKG, radiologic studies, cp CT scan, plain films. 17:13 Differential Diagnosis: cardiac arrhythmia, GI bleed. Counseling: I had a detailed discussion with the patient and/or guardian regarding the historical points, exam findings, and any diagnostic results supporting the discharge/admit diagnosis, lab results, radiology results, the need for outpatient follow up, a family practitioner, to return to the emergency department if symptoms worsen or persist or if there are any questions or concerns that arise at home. 07/05 13:14 Order name: Basic Metabolic Panel; Complete Time: 15:59 07/05 16:52 Interpretation: Normal except: CL 109; CRE 0.50. 07/05 13:14 Order name: CBC with Diff; Complete Time: 15:59 07/05 16:53 Interpretation: Normal except: HGB 11.8; MCV 78.9; MCH 25.7; PLT 419; RDW 16.0; MPV 7.5. 07/05 13:14 Order name: LFT's; Complete Time: 15:59 07/05 16:53 Interpretation: Normal except: GLOB 3.9; A/G 1.0. 07/05 13:14 Order name: Magnesium; Complete Time: 15:59 07/05 13:14 Order name: PT-INR; Complete Time: 15:59 07/05 13:14 Order name: Troponin HS; Complete Time: 15:59 07/05 13:14 Order name: XRAY Chest (1 view); Complete Time: 15:59 cp 07/05 15:59 Order name: CT Head Brain wo Cont; Complete Time: 16:52 cp 07/05 16:53 Interpretation: Report reviewed. 07/05 13:14 Order name: EKG; Complete Time: 13:15 07/05 13:14 Order name: Cardiac monitoring; Complete Time: 17:36 07/05 13:14 Order name: EKG - Nurse/Tech; Complete Time: 14:50 cp 07/05 13:14 Order name: IV Saline Lock; Complete Time: 14:39 cp 07/05 13:14 Order name: Labs collected and sent; Complete Time: 14:39 cp 07/05 13:14 Order name: O2 Per Protocol; Complete Time: 17:36 cp 07/05 13:14 Order name: O2 Sat Monitoring; Complete Time: 17:36 cp 07/05 13:14 Order name: Orthostatics; Complete Time: 17:05 cp EC:55 Rate is 64 beats/min. Rhythm is regular. MA interval is normal. QRS interval is normal. cp QT interval is normal. T waves are Inverted in lead aVR. Interpreted by me. Reviewed by me. Administered Medications: No medications were administered Disposition Summary: 07/05/23 17:14 Discharge Ordered Location: Home cp Problem: new cp Symptoms: have improved cp Condition: Stable cp Diagnosis - Other malaise and fatigue cp - Dizziness and giddiness cp - Syncope Near cp Followup: cp - With: Private Physician - When: 2 - 3 days - Reason: Recheck today's complaints Discharge Instructions: - Discharge Summary Sheet cp - Dizziness cp - Near-Syncope cp - Fatigue cp Forms: - Medication Reconciliation Form cp - Thank You Letter cp - Antibiotic Education cp - Prescription Opioid Use cp - Patient Portal Instructions cp - Leadership Thank You Letter cp Prescriptions: - Meclizine 25 mg Oral Tablet - take 1 tablet by ORAL route every 8 hours As needed; 30 tablet; Refills: 0, cp Product Selection Permitted Signatures: Dispatcher [employer] EDPA Thony Treviño PA PA cp Breneman, Mary Beth RN RN mb9 Corrections: (The following items were deleted from the chart) 07/06 17:28 07/05 13:25 Abdomen/GI: Negative for abdominal pain, nausea, vomiting, and diarrhea, cp constipation, cp
--- NOTE | 2023-07-05 17:14 | ER ---
Nurse's Notes [facility] Name: Petty Greenfield Age: 42 yrs Sex: Female : 1980 Arrival Date: 07/05/2023 Time: 12:10 Bed Treatment Private MD: Diagnosis: Other malaise and fatigue;Dizziness and giddiness;Syncope Near Presentation: 07/05 12:57 Chief complaint: Patient states: "I was here a couple days ago with the same problem. mb9 Today, I felt like I was going to pass out. I got dizzy while walking around and got nauseous". Coronavirus screen: At this time, the client does not indicate any symptoms associated with coronavirus-19. Ebola Screen: No symptoms or risks identified at this time. Initial Sepsis Screen: Does the patient meet any 2 criteria? No. Patient's initial sepsis screen is negative. Does the patient have a suspected source of infection? No. Patient's initial sepsis screen is negative. Risk Assessment: Do you want to hurt yourself or someone else? Patient reports no desire to harm self or others. Onset of symptoms was July 05, 2023. 12:57 Method Of Arrival: Ambulatory mb9 12:57 Acuity: MAISHA 3 mb9 Triage Assessment: 13:00 General: Appears in no apparent distress. Behavior is calm, cooperative. Neuro: mb9 Gamble Agitation-Sedation Scale (RASS): 0 - Alert and Calm Level of Consciousness is awake, alert, obeys commands, Oriented to person, place, time, situation, Appropriate for age Reports dizziness. Respiratory: Airway is patent Respiratory effort is even, unlabored, Respiratory pattern is regular, symmetrical. GI: Reports lower abdominal pain. Derm: Skin is pink, warm \\T\\ dry. Musculoskeletal: Range of motion: intact in all extremities. 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 - Social history:: Smoking status: Patient denies any tobacco usage or history of. Screenin:53 [facility] ED Fall Risk Assessment (Adult) History of falling in the last 3 months, me1 including since admission No falls in past 3 months (0 pts) Confusion or Disorientation No (0 pts) Intoxicated or Sedated No (0 pts) Impaired Gait No (0 pts) Mobility Assist Device Used No (0 pt) Altered Elimination No (0 pt) Score/Fall Risk Level 0 - 2 = Low Risk. Abuse screen: Denies threats or abuse. Nutritional screening: No deficits noted. Tuberculosis screening: No symptoms or risk factors identified. Assessment: 16:53 General: Appears uncomfortable, well groomed, well developed, well nourished, Behavior me1 is calm, cooperative, appropriate for age, Reports feeling ill for fatigue for >3 days, c/o severe fatigue, dizziness and nausea. States, "I just feel so bad all over.". Pain: Denies pain. Neuro: Level of Consciousness is awake, alert, obeys commands, Oriented to person, place, time, situation, Appropriate for age Reports dizziness, since Wednesday. Cardiovascular: Capillary refill < 3 seconds Patient's skin is warm and dry. Respiratory: Airway is patent Respiratory effort is even, unlabored, Respiratory pattern is regular, symmetrical. GI: Reports nausea. Vital Signs: 12:57 BP 142 / 65; Pulse 72; Resp 18; Temp 98.2; Pulse Ox 100% ; Weight 72.57 kg; Height 5 mb9 ft. 3 in. ; 16:52 BP 142 / 65; Pulse 70; Resp 17; Pulse Ox 100% on R/A; Pain 0/10; me1 17:05 BP 130 / 66 Supine; Pulse 70; Pulse Ox 100% ; cm10 17:05 BP 137 / 77 Sitting; Pulse 66; Pulse Ox 100% ; cm10 17:05 BP 130 / 82; Pulse 73; Pulse Ox 100% on R/A; cm10 12:57 Body Mass Index 28.34 (72.57 kg, 160.02 cm) mb9 16:52 Pain Scale: Adult me1 ED Course: 12:17 Patient arrived in ED. im 12:57 Arm band placed on. mb9 12:59 Triage completed. mb9 13:01 Thony Treviño PA is PHCP. cp 13:01 Domenic Gtz MD is Attending Physician. cp 14:12 XRAY Chest (1 view) In Process Unspecified. EDMS 14:39 Basic Metabolic Panel Sent. cm10 14:39 CBC with Diff Sent. cm10 14:39 LFT's Sent. cm10 14:39 Magnesium Sent. cm10 14:39 PT-INR Sent. cm10 14:39 Troponin HS Sent. cm10 14:39 Initial lab(s) drawn, by me, sent to lab. Inserted saline lock: 20 gauge in right cm10 antecubital area, using aseptic technique. Blood collected. 16:35 CT Head Brain wo Cont In Process Unspecified. EDMS 16:52 Rae Bledsoe, RN is Primary Nurse. me1 16:53 Patient has correct armband on for positive identification. Bed in low position. Call me1 light in reach. Side rails up X 1. Provided Education on: POC. Verbalized understanding. . 16:53 No provider procedures requiring assistance completed. IV is patent, is intact, with me1 fluids infusing freely, with good blood return. 17:40 IV discontinued, intact, bleeding controlled, No redness/swelling at site. Pressure cm10 dressing applied. Administered Medications: No medications were administered Medication: 16:53 VIS not applicable for this client. me1 Outcome: 17:14 Discharge ordered by MD. cp 17:40 Discharged to home ambulatory. cm10 17:40 Condition: good 17:40 Discharge instructions given to patient, Instructed on discharge instructions, follow up and referral plans. medication usage, Demonstrated understanding of instructions, follow-up care, medications, Prescriptions given X 1. 17:40 Patient left the ED. cm10 Signatures: Dispatcher [employer] EDMA Thony Treviño PA PA cp Breneman, Mary Beth, RN RN mb9 Camila Lopez Clarissa, RN RN cm10 Rae Bledsoe, RN RN me1
[2023-07-05 17:59] VITALS: TEMP 98.2; O2SAT 100
[2023-07-05 18:06] VITALS: BP 130/82
--- NOTE | 2023-07-06 16:30 | EKG ---
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
== END 2023-07-05 17:40 | disposition home or self-care (01) ==
LOC: ER 12:10
DX: R55 Syncope and collapse (principal); R53.81 Other malaise; R53.83 Other fatigue; R42 Dizziness and giddiness
CPT/HCPCS: 36415; 70450; 71045; 80048; 80076; 83735; 84484; 85025; 85610; 93005; 99284